=== PATIENT | female | born 1995 | race Caucasian/White ===

== ENCOUNTER 2016-08-24 06:59 | Inpatient (IN) | payer OTHER ==
[2016-08-24] VITALS (28 sets, daily range): BP systolic 91–148; BP diastolic 50–95
[~2016-08-24] VITALS: Ht 162.6 cm; Wt 87.3 kg
[~2016-08-24 06:59] MED LIST: ASPIR 8181 M1 PO; ENOXAPARIN40 MG/0.4 SC; PRENATAL TABLE1 EAC3 PO; PROAIR HFA8.5 GM IH; ZOFRAN4 MG PO
[2016-08-24] MEDS ORDERED: HEPARIN SO5000 UNIT3 SC (07:44)
[2016-08-24 08:04] LABS: HEMATOCRIT 38.5 % (36.0-46.0); MCV 93.9 FL (83-99); PLATELET COUNT 185 K/uL (156-360); RBC DIS.WIDTH-CV 14.2 % (11.8-14.6); RBC DIS.WIDTH-SD 48.3 % (39-53)
[2016-08-24 08:07] LABS: EOSINOPHIL (%) 1.8 % (0-5); EOSINOPHIL COUNT 0.2 K/uL (0-0.3); IMMATURE GRANULOCYTE (%) 0.2 % (0.0-0.7); LYMPHOCYTE COUNT 1.6 K/uL (1.0-2.8); MONOCYTE (%) 7.4 % (3-12); MONOCYTE COUNT 0.7 K/uL (0-0.8); NEUTROPHIL (%) 72.3 % (45-76); NEUTROPHIL COUNT 6.5 K/uL (1.8-6.4)
[2016-08-24 08:46] LABS: HEMATOLOGY COMMENT 1 SMEAR COMPATIBLE; USER ID STC
[2016-08-24] MEDS ORDERED: IBUPROFEN800 MG PO (18:34)
[2016-08-24] MEDS ORDERED: LOVENOX40 MG/0.4 SC (18:45)
[2016-08-25 07:35] VITALS: BP 113/59
[2016-08-25 15:22] VITALS: BP 124/70
[2016-08-25 23:19] VITALS: BP 111/59
[2016-08-26 07:41] VITALS: BP 111/66
== END 2016-08-26 15:00 | disposition home or self-care (01) | DRG 775 ==
LOC: LDRP-OP 06:59 → 2WEST 07:00 → LDRP-OP 08:56 → 2WEST 18:03 → LDRP-OP 10-14 19:39
PROVIDERS: Obstetrics & Gynecology
DX: O99.284 Endocrine, nutritional and metabolic diseases complicating childbirth (principal); D68.2 Hereditary deficiency of other clotting factors; E72.12 Methylenetetrahydrofolate reductase deficiency; Z37.0 Single live birth; J45.909 Unspecified asthma, uncomplicated; Z3A.37 37 weeks gestation of pregnancy; O24.410 Gestational diabetes mellitus in pregnancy, diet controlled; O99.12 Other diseases of the blood and blood-forming organs and certain disorders involving the immune mechanism complicating childbirth; O99.52 Diseases of the respiratory system complicating childbirth; Z79.01 Long term (current) use of anticoagulants; Z79.82 Long term (current) use of aspirin
CPT/HCPCS: 85025; C1755; J1200; J1650; J2405; J3010; J7120

== ENCOUNTER → 2016-08-30 | Outpatient (CLI) | payer OTHER ==
[~2016-08-30] MED LIST changes: +HEPARIN SO5000 UNIT3 SC; +IBUPROFEN800 MG PO; +LOVENOX40 MG/0.4 SC
== END | disposition home or self-care (01) ==
LOC: LAC 12:11
DX: O92.79 Other disorders of lactation (principal)
CPT/HCPCS: G0463

== ENCOUNTER 2018-01-23 07:13 | Inpatient (IN) | payer OTHER ==
[~2018-01-23] VITALS: Ht 160 cm; Wt 87.1 kg
[2018-01-23] VITALS (20 sets, daily range): BP systolic 91–139; BP diastolic 51–76
[2018-01-23 09:10] LABS: AMPHETAMINE NEGATIVE (500 ng/mL); BARBITURATES NEGATIVE (200 ng/mL); BENZODIAZEPINES NEGATIVE (150 ng/mL); BUPRENORPHINE NEGATIVE (10 ng/mL); COCAINE NEGATIVE (150 ng/mL); METHADONE NEGATIVE (200 ng/mL); METHAMPHETAMINE NEGATIVE (500 ng/mL); OPIATES (MORPHINE) NEGATIVE (100 ng/mL); OXYCODONE NEGATIVE (100 ng/mL); PHENCYCLIDINE NEGATIVE (25 ng/mL); PROPOXYPHENE NEGATIVE (300 ng/mL); THC CANNABINOIDS NEGATIVE (50 ng/mL); TRICYCLIC ANTIDEPRESSANTS NEGATIVE (300 ng/mL)
[2018-01-23 09:43] LABS: BASOPHIL (%) 0.4 % (0-1); EOSINOPHIL (%) 1.5 % (0-5); EOSINOPHIL COUNT 0.1 K/uL (0-0.3); HEMOGLOBIN 11.7 G/DL (11.9-15.5); IMMATURE GRANULOCYTE (%) 0.7 % (0.0-0.7); LYMPHOCYTE (%) 28.1 % (15-42); LYMPHOCYTE COUNT 2.4 K/uL (1.0-2.8); MCH 31.7 PG (29.0-34.0); MCHC 34.4 G/DL (30.0-36.0); MCV 92.1 FL (83-99); MONOCYTE (%) 7.8 % (3-12); MONOCYTE COUNT 0.7 K/uL (0-0.8); NEUTROPHIL (%) 61.5 % (45-76); NEUTROPHIL COUNT 5.2 K/uL (1.8-6.4); PLATELET COUNT 217 K/uL (156-360); RBC DIS.WIDTH-CV 14.6 % (11.8-14.6); RBC DIS.WIDTH-SD 48.3 % (39-53); RED BLOOD COUNT 3.69 M/uL (3.80-5.20); WHITE BLOOD COUNT 8.5 K/uL (4.1-10.2)
[2018-01-23] MEDS ORDERED: IBUPROFEN800 MG PO (22:00)
[2018-01-24 00:38] VITALS: BP 108/61
[2018-01-24 07:00] VITALS: BP 105/66
[2018-01-24 14:29] VITALS: BP 108/67
[2018-01-24 22:50] VITALS: BP 89/48
[2018-01-25 07:10] VITALS: BP 94/59
== END 2018-01-25 12:10 | disposition home or self-care (01) | DRG 775 ==
LOC: LDRP-OP 07:13 → 2WEST 07:14 → LDRP-OP 12:40 → 2WEST 21:34 → LDRP-OP 03-15 09:14
PROVIDERS: Midwife
PROC: 3E0R3BZ Introduction of Anesthetic Agent into Spinal Canal, Percutaneous Approach (ICD-10-PCS; principal; 2018-01-23)
PROC: 10907ZC Drainage of Amniotic Fluid, Therapeutic from Products of Conception, Via Natural or Artificial Opening (ICD-10-PCS; principal; 2018-01-23)
PROC: 3E033VJ Introduction of Other Hormone into Peripheral Vein, Percutaneous Approach (ICD-10-PCS; principal; 2018-01-23)
PROC: 10E0XZZ Delivery of Products of Conception, External Approach (ICD-10-PCS; principal; 2018-01-23)
PROC: 00HU33Z Insertion of Infusion Device into Spinal Canal, Percutaneous Approach (ICD-10-PCS; principal; 2018-01-23)
DX: O99.824 Streptococcus B carrier state complicating childbirth (principal); J45.909 Unspecified asthma, uncomplicated; O99.52 Diseases of the respiratory system complicating childbirth; Z37.0 Single live birth; Z3A.37 37 weeks gestation of pregnancy; O99.12 Other diseases of the blood and blood-forming organs and certain disorders involving the immune mechanism complicating childbirth; D68.51 Activated protein C resistance; O99.284 Endocrine, nutritional and metabolic diseases complicating childbirth; E72.12 Methylenetetrahydrofolate reductase deficiency
CPT/HCPCS: 85025; C1755; J1200; J1650; J2540; J7120